=== PATIENT | male | born 1990 | race Two or more races ===

== ENCOUNTER 2019-10-24 00:22 | Inpatient (IN) | payer SELFPAY ==
[2019-10-24] VITALS (23 sets, daily range): BP systolic 109–178; BP diastolic 71–124
[~2019-10-24] VITALS: Ht 177.8 cm; Wt 122.5 kg
[2019-10-24] MEDS ORDERED: IV NORMAL SALINE 1000 ML BAG IV ONE (01:00)
--- NOTE | 2019-10-24 01:08 | NUR ---
DR. RODRIGUEZ AT BEDSIDE FOR MSE.
[2019-10-24 01:13] LABS: BASOPHILS # (AUTO) 0.1 K/uL (0.0-8.0); BASOPHILS % (AUTO) 0.6 % (0.0-2.0); EOSINOPHILS # (AUTO) 0.3 K/uL (0.0-0.7); EOSINOPHILS % (AUTO) 3.2 % (0.0-7.0); HEMATOCRIT 40.4 % (36.7-47.1); HEMOGLOBIN 13.7 g/dL (12.5-16.3); LYMPHOCYTES # (AUTO) 0.6 K/uL (20.0-40.0); MEAN CORPUSCULAR HEMOGLOBIN 27.2 uug (23.8-33.4); MEAN CORPUSCULAR HGB CONC 34 g/dL (32.5-36.3); MEAN CORPUSCULAR VOLUME 80.4 fL (73.0-96.2); MONOCYTES # (AUTO) 0.5 K/uL (2.0-10.0); MONOCYTES % (AUTO) 5.5 % (0.0-11.0); NEUTROPHILS # (AUTO) 7.7 K/uL (1.8-8.9); NEUTROPHILS % (AUTO) 83.7 % (38.5-71.5); PLATELET COUNT (AUTO) 229 K/uL (152-348); RED BLOOD CELL COUNT(AUTO) 5.02 MIL/uL (4.06-5.63); WHITE BLOOD COUNT (AUTO) 9.2 K/uL (3.6-10.2)
--- NOTE | 2019-10-24 01:21 | NUR ---
ACCU CHECK 236MG/DL. DR RODRIGUEZ NOTIFIED.
[2019-10-24 01:22] LABS: ALANINE AMINOTRANSFERASE 69 U/L (16-63); ALKALINE PHOSPHATASE 89 U/L (50-136); ASPARTATE AMINOTRANSFERASE 29 U/L (15-37); BILIRUBIN,DIRECT 0.1 mg/dL (0.0-0.2); BILIRUBIN,TOTAL 0.9 mg/dL (0.2-1.0); CARBON DIOXIDE 26 mmol/L (21-32); CHLORIDE 97 mmol/L (98-107); GLUCOSE 271 mg/dL (74-106); POTASSIUM 3.6 mmol/L (3.5-5.1); TOTAL PROTEIN, SERUM 7.6 g/dL (6.4-8.2); UREA NITROGEN, BLOOD 12 mg/dL (7-18)
[2019-10-24 01:28] LABS: ETHANOL < 3 MG/DL (0-0)
[2019-10-24] MEDS ORDERED: OSELTAMIVIR PHOSPHATE 75 MG CAPSULE ONE (01:28)
[2019-10-24] MEDS ORDERED: OSELTAMIVIR PHOSPHATE 75 MG CAPSULE PO ONE (01:30)
[2019-10-24] MEDS ORDERED: ONDANSETRON 4 MG/2 ML VIAL IV ONE (01:30)
[2019-10-24] MEDS ORDERED: ACETAMINOPHEN ES 500 MG TABLET PO ONE (01:30)
[2019-10-24] MEDS ORDERED: IV NS 1000 ML 1,000 ML IV ONE (01:30)
[2019-10-24 01:43] LABS: ABG BASE EXCESS -1.1 mmol/L; ABG HCO3 22.2 mmol/L; ABG PH 7.446 (7.350-7.450); ABG SITE RIGHT RADIAL; ABG TOTAL HEMOGLOBIN 13.6 G/dL (13.5-18.0); MetHb 0.3 % (0.0-1.5); O2Hb 88.1 % (94.0-97.0); VENT MODE ROOM AIR
[2019-10-24 01:51] LABS: THYROID STIMULATING HORMONE 0.435 mIU/mL (0.358-3.740)
[2019-10-24 03:02] LABS: *BILIRUBIN,URIN NEGATIVE (NEGATIVE); *BLOOD, URINE NEGATIVE (NEGATIVE); *CLARITY,URINE CLEAR (CLEAR); *COLOR,URINE YELLOW (YELLOW); *KETONES,URINE 1+ (NEGATIVE); *UROBILINOGEN,URINE 0.2 E.U./dl (NORMAL); LEUKOCYTE ESTERASE ,URINE NEGATIVE (NEGATIVE); NITRITE, URINE NEGATIVE (NEGATIVE); PH,URINE 7.5 (5.0-8.0); UGLUCOSE 3+ (NEGATIVE)
[2019-10-24 03:12] LABS: *AMPHETAMINE, URINE NEGATIVE (NEGATIVE); *BARBITURATE, URINE NEGATIVE (NEGATIVE); *CANNABINOID, URINE POSITIVE (NEGATIVE); *COCCAINE, URINE NEGATIVE (NEGATIVE); *OPIATE, URINE NEGATIVE (NEGATIVE); *PHENCYCLIDINE SCREEN,URINE NEGATIVE (NEGATIVE)
[2019-10-24 03:31] LABS: BACTERIA,URINE NONE SEEN /HPF (NONE SEEN); RBC,URINE 0-3 /HPF (0-3); SQUAMOUS EPITHELIAL CELL,UR FEW /HPF (NONE SEEN)
[2019-10-24] MEDS ORDERED: KETOROLAC TROMETHAMINE 30 MG INJ IVP ONE (03:45)
[2019-10-24] MEDS ORDERED: KETOROLAC TROMETHAMINE 30 MG INJ ONE (03:46)
[2019-10-24] MEDS ORDERED: MORPHINE SULFATE 4 MG/1 ML DISP.SYRIN ONE ×2 (03:48→06:13)
[2019-10-24] MEDS ORDERED: ASPIRIN 325 MG TABLET ONE (03:48)
[2019-10-24] MEDS ORDERED: ASPIRIN 325 MG TABLET PO ONE (04:00)
[2019-10-24] MEDS ORDERED: MORPHINE SULFATE 4 MG/1 ML DISP.SYRIN IV ONE ×2 (04:00→06:15)
--- NOTE | 2019-10-24 04:54 | NUR ---
Pt. admitted to [facility] , under care of JACOB KIMBALL Belongs List completed.
[2019-10-24] MEDS ORDERED: CEFTRIAXONE /D5W 50ML IVPB **ER PYXIS IV ONE (04:58)
[2019-10-24] MEDS ORDERED: DEXTROSE 50% 50 ML DISP.SYRIN IV PRN (05:00)
[2019-10-24] MEDS ORDERED: Z GUARD REMEDY PASTE 57 GM TUBE TOP PRN (05:00)
[2019-10-24] MEDS ORDERED: MORPHINE SULFATE 2 MG/1 ML DISP.SYRIN IV PRN (05:00)
[2019-10-24] MEDS ORDERED: ALBUTEROL SULFATE 2.5 MG/ 0.5 ML NEBU NEB PRN (05:00)
[2019-10-24] MEDS ORDERED: MAGNESIUM HYDROXIDE 30 ML LIQUID UDC PO PRN (05:00)
[2019-10-24] MEDS ORDERED: TEMAZEPAM 15 MG CAPSULE PO PRN (05:00)
[2019-10-24] MEDS ORDERED: CEFTRIAXONE 1 G in IV DEXTROSE 5% 50 ML IV ONE (05:00)
[2019-10-24] MEDS ORDERED: AZITHROMYCIN 250 MG TABLET PO ONE (05:00)
[2019-10-24] MEDS ORDERED: ONDANSETRON 4 MG/2 ML VIAL IV PRN (05:00)
--- NOTE | 2019-10-24 06:15 | NUR ---
PATIENT C/O CHEST PAIN AND SHORTNESS OF BREATH. RECTAL TEMP DONE 102.3, EKG AND LABS DONE. DR MICHAEL MCKEON WITH JACOB KIMBALL, AND PATIENT WILL BE TRANSFERRED TO CCU.
[2019-10-24] MEDS ORDERED: IBUPROFEN 800 MG TABLET ONE (06:30)
--- NOTE | 2019-10-24 06:35 | NUR ---
CONTRAST CONSENT SIGNED.
[2019-10-24] MEDS: IBUPROFEN 800 MG TABLET PO PRN ×2 (06:46→16:48)
--- NOTE | 2019-10-24 06:51 | NUR ---
REPORT GIVEN TO RICHY HENDRICKS
[2019-10-24] MEDS ORDERED: IOHEXOL 350 100 ML INFUS..BTL ONE (06:58)
[2019-10-24] MEDS ORDERED: IV NORMAL SALINE 250 ML IV ONE (06:58)
[2019-10-24] MEDS ORDERED: SWABABLE VALVE TRANSFER SET EA MC ONE (06:58)
--- NOTE | 2019-10-24 07:11 | NUR ---
RECEIVED PATIENT FROM ER. PATIENT AMBULATORY, AOX4. PATIENT DENIES PAIN AND DISCOMFORT. PATIENT IN ACUTE DISTRESS WITH SOB PATIENT ON 2L VIA NC. SITUATED PATIENT IN BED.
[2019-10-24] MEDS: ACETAMINOPHEN 325 MG TABLET PO PRN ×2 (07:37→15:13)
[2019-10-24] MEDS: PANTOPRAZOLE SODIUM 40 MG TABLET.DR PO SCH (07:38)
[2019-10-24] MEDS: BLOOD SUGAR DIAGNOSTIC 1 EACH STRIP VI SCH ×4 (08:03→21:44)
[2019-10-24] MEDS: IV NS 1000 ML 1,000 ML IV PRN ×2 (08:04→16:05)
[2019-10-24] MEDS: ENOXAPARIN SODIUM 40 MG/0.4 ML DISP.SYRIN SQ SCH (08:07)
[2019-10-24 08:10] LABS: ABG BASE EXCESS -2.1 mmol/L; ABG PCO2 35.7 mmHg (35.0-45.0); ABG PH 7.407 (7.350-7.450); ABG PO2 72.9 mmHg (75.0-100.0); ABG SITE RIGHT RADIAL; VENT MODE Nasal Cannula
--- NOTE | 2019-10-24 08:10 | NUR ---
HOSPITALIST DR PAUL IN THE UNIT. FULL REPORT GIVEN. PATIENT MONITORED FOR HYPERTENSION PRN MEDICATION GIVEN, BLOOD SUGAR MONITORED AND INSULIN ADMINISTERED. CONTROLLING FEVER IMPLEMENTED COOLING MEASURES AND TYLENOL. DR CHAMBERS AT BEDSIDE DISCUSSING PLAN OF CARE WITH PATIENT.
[2019-10-24] MEDS: hydrALAZINE HCL 20 MG/1 ML VIAL IV PRN ×3 (08:15→22:38)
[2019-10-24] MEDS: OSELTAMIVIR PHOSPHATE 75 MG CAPSULE PO SCH (08:16)
[2019-10-24] MEDS: INSULIN REGULAR, HUMAN 300 UNIT/3 ML VIAL SQ PRN ×4 (08:17→21:47)
[2019-10-24] MEDS: GUAIFENESIN/CODEINE 5 ML LIQUID UDC PO PRN ×2 (09:44→17:40)
[2019-10-24] MEDS: BENZONATATE 100 MG CAPSULE PO SCH ×3 (09:51→22:31)
[2019-10-24] MEDS ORDERED: LORAZEPAM 2 MG/1 ML VIAL IV PRN (10:30)
--- NOTE | 2019-10-24 10:39 | NUR ---
PULMONARY SERVICES IN THE UNIT, DR LOPEZ. FULL REPORT GIVEN TO DR. LOPEZ SEE ORDER HISTORY. DR LOPEZ AT BEDSIDE DISCUSSING PLAN OF CARE WITH PATIENT.
[2019-10-24] MEDS: METOCLOPRAMIDE HCL 10 MG/2 ML VIAL IV PRN (12:34)
[2019-10-24] MEDS: MORPHINE SULFATE 4 MG/1 ML DISP.SYRIN IV PRN ×2 (12:34→23:39)
--- NOTE | 2019-10-24 13:00 | NUR ---
At this time muffler hand superintendent distribution Dr. Mitchell called to be notified of persistent tachycardia in the 150's. with SBP slowly trending down now in [id number] patient remains with elevated temp. 102.2 while on cooling measures and medicated as ordered. Orders to continue with current care plan received. Attending also notified.
[2019-10-24] MEDS: HYDROCODONE/APAP 5-325MG TABLET PO PRN ×2 (13:13→23:38)
[2019-10-24] MEDS ORDERED: KETOROLAC TROMETHAMINE 15 MG INJ IVP ONE (17:00)
[2019-10-24] MEDS: COLCHICINE 0.6 MG TABLET PO SCH (17:36)
[2019-10-24] MEDS: IBUPROFEN 800 MG TABLET PO SCH (17:38)
--- NOTE | 2019-10-24 19:15 | NUR ---
received patient , awake oiriented , temp was 99 .0 rectally , on 3 l nc , hl , denies nausea and vomiting , and pain uses urinal
--- NOTE | 2019-10-24 19:45 | NUR ---
bijan montoya , epi for id was here to see reji tatum
[2019-10-24] MEDS ORDERED: METOPROLOL TARTRATE 25 MG TABLET PO SCH (21:00)
--- NOTE | 2019-10-24 22:00 | NUR ---
report given to marisa harvey , patient mental status , history , medicatins given , skin status
[2019-10-24] MEDS ORDERED: BENZONATATE 100 MG CAPSULE ONE (22:05)
--- NOTE | 2019-10-24 23:52 | NUR ---
patient is educated about sins and symptoms of sob , positioning, an oxygen on 3 l via nc Addendum: 10/24/19 at 2352 by JANICE VELA RN Amended: Links added.
[2019-10-25] VITALS (25 sets, daily range): BP systolic 93–190; BP diastolic 52–144
[2019-10-25] MEDS: IBUPROFEN 800 MG TABLET PO SCH ×3 (00:56→16:40)
[2019-10-25] MEDS: GUAIFENESIN/CODEINE 5 ML LIQUID UDC PO PRN ×2 (00:57→06:36)
[2019-10-25] MEDS: hydrALAZINE HCL 20 MG/1 ML VIAL IV PRN (02:15)
--- NOTE | 2019-10-25 03:10 | NUR ---
MESSAGE LEFT WITH DR. CHRISTENSEN, ,BUT NO RETURN CALL, CALLED ABOUT PT B/P 190, INFORMED ME TO LET MEDICINE GIVEN TO TAKE EFFECT.
[2019-10-25] MEDS: HYDROCODONE/APAP 5-325MG TABLET PO PRN ×2 (03:55→15:17)
[2019-10-25] MEDS: MORPHINE SULFATE 4 MG/1 ML DISP.SYRIN IV PRN ×2 (03:55→22:13)
[2019-10-25 05:39] LABS: BASOPHILS % (AUTO) 0.2 % (0.0-2.0); EOSINOPHILS % (AUTO) 0.2 % (0.0-7.0); HEMATOCRIT 39.2 % (36.7-47.1); HEMOGLOBIN 13.1 g/dL (12.5-16.3); LYMPHOCYTES # (AUTO) 0.5 K/uL (20.0-40.0); LYMPHOCYTES % (AUTO) 7.6 % (20.5-51.5); MEAN CORPUSCULAR HEMOGLOBIN 27.5 uug (23.8-33.4); MEAN CORPUSCULAR HGB CONC 34 g/dL (32.5-36.3); MONOCYTES # (AUTO) 0.4 K/uL (2.0-10.0); MONOCYTES % (AUTO) 5.9 % (0.0-11.0); NEUTROPHILS # (AUTO) 5.6 K/uL (1.8-8.9); NEUTROPHILS % (AUTO) 86.1 % (38.5-71.5); PLATELET COUNT (AUTO) 184 K/uL (152-348); RED BLOOD CELL COUNT(AUTO) 4.78 MIL/uL (4.06-5.63); WHITE BLOOD COUNT (AUTO) 6.5 K/uL (3.6-10.2)
[2019-10-25] MEDS: PANTOPRAZOLE SODIUM 40 MG TABLET.DR PO SCH (06:12)
[2019-10-25] MEDS: BENZONATATE 100 MG CAPSULE PO SCH ×3 (06:12→21:10)
[2019-10-25] MEDS: BLOOD SUGAR DIAGNOSTIC 1 EACH STRIP VI SCH ×4 (06:48→21:31)
[2019-10-25] MEDS: INSULIN REGULAR, HUMAN 300 UNIT/3 ML VIAL SQ PRN ×4 (06:52→21:33)
--- NOTE | 2019-10-25 07:50 | NUR ---
REYES IN THE UNIT TO SEE PATIENT REPORT GIVEN. REFER TO ORDER HISTORY FOR NEW ORDERS PLACED
[2019-10-25 08:12] LABS: CREATININE 0.9 mg/dL (0.6-1.3)
[2019-10-25 08:26] LABS: BILIRUBIN,DIRECT 0.1 mg/dL (0.0-0.2); BILIRUBIN,TOTAL 0.6 mg/dL (0.2-1.0); MAGNESIUM 1.8 mg/dL (1.8-2.4); TOTAL PROTEIN, SERUM 7.2 g/dL (6.4-8.2)
[2019-10-25] MEDS: CEFTRIAXONE 1 G in IV DEXTROSE 5% 50 ML IV SCH (08:34)
[2019-10-25] MEDS: AZITHROMYCIN 250 MG TABLET PO SCH (08:34)
[2019-10-25] MEDS: ENOXAPARIN SODIUM 40 MG/0.4 ML DISP.SYRIN SQ SCH (08:35)
[2019-10-25] MEDS: OSELTAMIVIR PHOSPHATE 75 MG CAPSULE PO SCH (08:35)
[2019-10-25] MEDS: COLCHICINE 0.6 MG TABLET PO SCH ×2 (08:35→16:40)
[2019-10-25] MEDS: ACETAMINOPHEN 325 MG TABLET PO PRN (09:10)
--- NOTE | 2019-10-25 10:56 | NUR ---
PULMONARY SERVICES DR. LOPEZ IN THE UNIT. FULL REPORT GIVEN, SEE ORDER HISTORY. DR. LOPEZ AT BEDSIDE DISCUSSING PLAN OF CARE WITH PATIENT.
--- NOTE | 2019-10-25 15:00 | NUR ---
CARDIOLOGY SERVICES DR CHRISTENSEN IN THE UNIT. FULL REPORT GIVEN, NO NEW ORDERS RECEIVED. DR CHRISTENSEN AT [facility] DISCUSSING PLAN F CARE WITH PATIENT.
[2019-10-25] MEDS: METOCLOPRAMIDE HCL 10 MG/2 ML VIAL IV PRN ×2 (16:39→22:18)
--- NOTE | 2019-10-25 20:00 | NUR ---
kalia thakkar , id was here to see patient given an update on patient's condition
--- NOTE | 2019-10-25 21:00 | NUR ---
bijan microsoft dynamics ax developer id , was called to clarify order regarding diflucan interaction with zithromax , gave orders , it's mason to give diflucan
--- NOTE | 2019-10-25 22:03 | NUR ---
no sob noted , oxygen via nc was downgrade to 2l from 4 l , able to aambulate without sob in exertion with activities Addendum: 10/25/19 at 2203 by JANICE VELA RN Amended: Links added. Addendum: 10/25/19 at 2208 by JANICE VELA RN Amended: Links added. Addendum: 10/25/19 at 2222 by JANICE VELA RN Amended: Links added. Addendum: 10/25/19 at 2226 by JANICE VELA RN Amended: Links added. Addendum: 10/25/19 at 2228 by JANICE VELA RN Amended: Links added.
--- NOTE | 2019-10-25 22:08 | NUR ---
educated about signs and symptoms of flu ,diabetes ,hypotension , verbalize understanding Addendum: 10/25/19 at 2208 by JANICE VELA RN Amended: Vanda added. Addendum: 10/25/19 at 2 by JANICE VELA RN Amended: Vanda added. Addendum: 10/25/19 at 2226 by JANICE VELA RN Amended: Links added. Addendum: 10/25/19 at 2228 by JANICE VELA RN Amended: Links added.
--- NOTE | 2019-10-25 22:18 | NUR ---
complaine of feleling nauseated , medicationofferer and accepted
--- NOTE | 2019-10-25 22:22 | NUR ---
blood sugar is being monitored and and output Addendum: 10/25/19 at 2222 by JANICE VELA RN Amended: Vanda added. Addendum: 10/25/19 at 2226 by JANICE VELA RN Amended: Vanda drummond. Addendum: 10/25/19 at 2228 by JANICE VELA RN Amended: Links added.
--- NOTE | 2019-10-25 22:26 | NUR ---
lab work is being monitored and intake and output Addendum: 10/25/19 at 2226 by JANICE VELA RN Amended: Vanda added. Addendum: 10/25/19 at 2228 by JANICE VELA RN Amended: Vanda drummond.
--- NOTE | 2019-10-25 22:28 | NUR ---
patient has prn hydralazine iv for htn and pain mediation when needed Addendum: 10/25/19 at 2228 by JANICE VELA RN Amended: Links added.
--- NOTE | 2019-10-25 23:00 | NUR ---
feeling of nausea and pain relieved
[2019-10-26] VITALS (36 sets, daily range): BP systolic 64–146; BP diastolic 22–99
[2019-10-26] MEDS: IBUPROFEN 800 MG TABLET PO SCH ×3 (01:00→17:34)
--- NOTE | 2019-10-26 01:00 | NUR ---
sleeping soundly , arousable , denies pain , nausea or vomiting
--- NOTE | 2019-10-26 04:00 | NUR ---
complained of sob , rt notified and after receiving breathing breathing treatment les than an hour ago , abg was done , cxr oredered and done , pain medication given vs taken and tamperature is 98.8, awake and oriented and able to follow command , oxygen at 2 l nc , saturating 100 %
[2019-10-26] MEDS: MORPHINE SULFATE 4 MG/1 ML DISP.SYRIN IV PRN (04:12)
--- NOTE | 2019-10-26 04:15 | NUR ---
heart rate went up to 180 , ekg was ordered and done , still awake oriented
--- NOTE | 2019-10-26 04:20 | NUR ---
dr raphael was called and notified of patient's status ordered 5 mg lopressor iv x 1
[2019-10-26] MEDS ORDERED: METOPROLOL TARTRATE 5 MG/5 ML VIAL IVP PRN (04:30)
[2019-10-26 04:57] LABS: ABG BASE EXCESS -2.3 mmol/L; ABG HCO3 20.6 mmol/L; ABG PH 7.454 (7.350-7.450); ABG PO2 98.8 mmHg (75.0-100.0); ABG SITE RIGHT RADIAL; ABG TOTAL HEMOGLOBIN 12.8 G/dL (13.5-18.0); COHb 1.1 % (0.5-1.5); MetHb 0.4 % (0.0-1.5); O2Hb 96.6 % (94.0-97.0); VENT MODE Nasal Cannula
--- NOTE | 2019-10-26 05:04 | NUR ---
heart rate is still sustaining at 170's , malena guerrero , called and notified , of patient's staus . waiting for calll back
[2019-10-26 05:21] LABS: BASOPHILS % (AUTO) 0.4 % (0.0-2.0); EOSINOPHILS # (AUTO) 0.2 K/uL (0.0-0.7); EOSINOPHILS % (AUTO) 3.1 % (0.0-7.0); HEMATOCRIT 37.6 % (36.7-47.1); HEMOGLOBIN 12.7 g/dL (12.5-16.3); LYMPHOCYTES # (AUTO) 1.4 K/uL (20.0-40.0); LYMPHOCYTES % (AUTO) 22.4 % (20.5-51.5); MEAN CORPUSCULAR HEMOGLOBIN 27.4 uug (23.8-33.4); MEAN CORPUSCULAR HGB CONC 34 g/dL (32.5-36.3); MEAN CORPUSCULAR VOLUME 81.6 fL (73.0-96.2); MONOCYTES # (AUTO) 0.5 K/uL (2.0-10.0); MONOCYTES % (AUTO) 7.8 % (0.0-11.0); NEUTROPHILS # (AUTO) 4.1 K/uL (1.8-8.9); NEUTROPHILS % (AUTO) 66.3 % (38.5-71.5); PLATELET COUNT (AUTO) 169 K/uL (152-348); RED BLOOD CELL COUNT(AUTO) 4.61 MIL/uL (4.06-5.63); WHITE BLOOD COUNT (AUTO) 6.2 K/uL (3.6-10.2)
--- NOTE | 2019-10-26 05:30 | NUR ---
malena guerrero , called back and notified of patient' s current status and heart rate went down to 115 and patient is more comfortable and awake oriented , no sob , no orderd received
[2019-10-26] MEDS: PANTOPRAZOLE SODIUM 40 MG TABLET.DR PO SCH (06:43)
[2019-10-26] MEDS: BENZONATATE 100 MG CAPSULE PO SCH ×3 (06:43→22:57)
[2019-10-26] MEDS: BLOOD SUGAR DIAGNOSTIC 1 EACH STRIP VI SCH ×4 (06:52→20:30)
[2019-10-26] MEDS: INSULIN REGULAR, HUMAN 300 UNIT/3 ML VIAL SQ PRN ×4 (06:53→20:33)
--- NOTE | 2019-10-26 07:21 | NUR ---
Contacted Dr. Gibson in regards to increased HR of 191, no orders at this time, Dr. Gibson will discuss with Dr. Mitchell.
[2019-10-26] MEDS ORDERED: ADENOSINE 6 MG/2 ML SYR IV ONE ×5 (07:45→08:00)
--- NOTE | 2019-10-26 07:45 | NUR ---
Dr Mitchell, contacted this film writer and started to give orders for adenosine push 6mg then 12mg, and then 12mg. Dr Trevino was called from the ER to be at the bedside. Dr. Barraza is on her way.
[2019-10-26] MEDS ORDERED: HYDROMORPHONE 1 MG/1 ML DISP.SYRIN IVP ONE (08:15)
[2019-10-26] MEDS ORDERED: IV NS 1000 ML 1,000 ML IV ONE ×2 (08:15→11:45)
[2019-10-26 08:28] LABS: CREATININE 0.9 mg/dL (0.6-1.3); MAGNESIUM 1.8 mg/dL (1.8-2.4); PHOSPHOROUS 2.8 mg/dL (2.5-4.9); POTASSIUM 3.5 mmol/L (3.5-5.1)
[2019-10-26] MEDS ORDERED: ETOMIDATE 20 MG/10 ML VIAL IV ONE ×3 (08:30→10:00)
[2019-10-26] MEDS ORDERED: AMIODARONE HCL IV 150 MG in IV DEXTROSE 5% 100 ML IV STA (08:32)
[2019-10-26] MEDS ORDERED: AMIODARONE HCL IV 900 MG in IV DEXTROSE 5% 482 ML IV PRN (08:45)
--- NOTE | 2019-10-26 08:48 | NUR ---
Adenosine 6mg given at 0748 followed by 12mg at 0823am. Dr. balderas at bedside decided to cardiovert at 0824am at 100joules following an administration of 10mg etomidate and 0.5mg dilaudid iv push. Patient converted for a short period of time before he went back into SVT. Amioderone 150 IV push was given and a drip was prepared. A second cardoversion attempted by Dr. Balderas at 0848 after 5mg of Etomidate given.
[2019-10-26] MEDS ORDERED: ONDANSETRON 4 MG/2 ML VIAL IV STA (08:51)
[2019-10-26] MEDS ORDERED: FLUCONAZOLE 100 MG TABLET PO SCH (09:00)
--- NOTE | 2019-10-26 09:18 | NUR ---
Wasted Morphine that was pulled for pain as patients BP dropped. Accidentally typed "0" for amount wasted. Wasted amount was 4mg.
--- NOTE | 2019-10-26 09:32 | NUR ---
Patient was in SVT again 18mg Adenosine given iv push. Esmolol 60mg was given and an esmolol drip was given starting at 25 mcg/kg. Patient was in sinus tachycardia at 0932am
[2019-10-26] MEDS ORDERED: ESMOLOL 2.5 GM/NS 250 ML DRIP 250 ML IV ONE (09:38)
[2019-10-26] MEDS ORDERED: MIDAZOLAM HCL 2 MG/2 ML VIAL IV ONE (09:45)
[2019-10-26] MEDS ORDERED: ESMOLOL 2.5 GM/NS 250 ML DRIP 250 ML IV PRN ×3 (09:45→10:00)
[2019-10-26] MEDS ORDERED: ESMOLOL HCL 100 MG/10 ML VIAL IV ONE (09:45)
[2019-10-26] MEDS ORDERED: POTASSIUM CHLORIDE 20 MEQ POWDER PACKET PO ONE (10:15)
[2019-10-26] MEDS: AZITHROMYCIN 250 MG TABLET PO SCH (10:32)
[2019-10-26] MEDS: OSELTAMIVIR PHOSPHATE 75 MG CAPSULE PO SCH (10:35)
[2019-10-26] MEDS: COLCHICINE 0.6 MG TABLET PO SCH ×2 (10:35→17:34)
[2019-10-26] MEDS: ENOXAPARIN SODIUM 40 MG/0.4 ML DISP.SYRIN SQ SCH (10:51)
--- NOTE | 2019-10-26 11:00 | NUR ---
patient started complaining of pain in left groin. Patient feels weak and painful in left arm and leg. Left pedal pulse weak, but audible by doppler. Dr rodriguez came to bedside to evaluate patient.
--- NOTE | 2019-10-26 11:10 | NUR ---
BP dropping, contacted Dr. Mitchell and was advised to hold esmolol and monitor. PICC line ordered at this time.
[2019-10-26] MEDS: IV NS 1000 ML 1,000 ML IV PRN ×2 (12:10→23:24)
[2019-10-26] MEDS: CEFTRIAXONE 1 G in IV DEXTROSE 5% 50 ML IV SCH (13:01)
--- NOTE | 2019-10-26 15:00 | NUR ---
Picc line placed by Picc line nurse. Patient tolerated well.
[2019-10-26] MEDS: MAGNESIUM SULFATE/D5W 100 ML IV SCH ×2 (16:05→17:33)
--- NOTE | 2019-10-26 16:30 | NUR ---
Patient up at bedside and had a bowel movement. Tolerated movement independently, refused to use the commode.
--- NOTE | 2019-10-26 19:20 | NUR ---
Report given to nightman nurse, patient in bed awake alert/oriented x4 no distress noted at this time. amioderone running at 0.5, with NS running at 100ml/hr, sinus rhythm on the monitor. Awaiting results from radiology to see if picc line can be used as the first xray was not able to visualize the tip of the catheter.
--- NOTE | 2019-10-26 20:00 | NUR ---
RECEIVED PT AWAKE, ALERT & ORIENTED X4. DENIES PAIN THIS TIME. ON O2 @ 2lnc w/ o2 sat of 97%. ON AMIODARONE DRIP @ 0.5MG/HR ON LAC. AFEBRILE BP STABLE . C-SCOPE SR.
[2019-10-26] MEDS ORDERED: DIPHENOXYLATE HCL/ATROP SULF TABLET PO PRN (23:15)
--- NOTE | 2019-10-26 23:15 | NUR ---
PT HAD X4 LOOSE STOOL, CALLED DR CHAMBERS W/ GREG.
[2019-10-27] VITALS (22 sets, daily range): BP systolic 112–169; BP diastolic 56–112
--- NOTE | 2019-10-27 01:15 | NUR ---
PT HAD EMESIS OF APPROX 200CC, CALLED JACOB KIMBALL W/ ORDER. ZOFRAN 4MG GIVEN IVP ORDERED.
[2019-10-27] MEDS: IBUPROFEN 800 MG TABLET PO SCH ×3 (01:32→18:02)
[2019-10-27 04:42] LABS: BASOPHILS % (AUTO) 0.3 % (0.0-2.0); EOSINOPHILS # (AUTO) 0.2 K/uL (0.0-0.7); EOSINOPHILS % (AUTO) 2.6 % (0.0-7.0); HEMATOCRIT 34.4 % (36.7-47.1); HEMOGLOBIN 11.6 g/dL (12.5-16.3); LYMPHOCYTES # (AUTO) 1.6 K/uL (20.0-40.0); LYMPHOCYTES % (AUTO) 28.8 % (20.5-51.5); MEAN CORPUSCULAR HEMOGLOBIN 27.3 uug (23.8-33.4); MEAN CORPUSCULAR HGB CONC 34 g/dL (32.5-36.3); MEAN CORPUSCULAR VOLUME 81.2 fL (73.0-96.2); MONOCYTES # (AUTO) 0.3 K/uL (2.0-10.0); MONOCYTES % (AUTO) 5.8 % (0.0-11.0); NEUTROPHILS # (AUTO) 3.6 K/uL (1.8-8.9); NEUTROPHILS % (AUTO) 62.5 % (38.5-71.5); PLATELET COUNT (AUTO) 182 K/uL (152-348); RED BLOOD CELL COUNT(AUTO) 4.24 MIL/uL (4.06-5.63); WHITE BLOOD COUNT (AUTO) 5.7 K/uL (3.6-10.2)
[2019-10-27 04:50] LABS: CARBON DIOXIDE 24 mmol/L (21-32); CHLORIDE 103 mmol/L (98-107); CREATININE 0.7 mg/dL (0.6-1.3); GLUCOSE 193 mg/dL (74-106); MAGNESIUM 1.9 mg/dL (1.8-2.4); POTASSIUM 3.5 mmol/L (3.5-5.1); UREA NITROGEN, BLOOD 14 mg/dL (7-18)
--- NOTE | 2019-10-27 05:20 | NUR ---
HYDRALAZINE 10MG GIVEN IVP FOR BP-162/100.
[2019-10-27] MEDS: hydrALAZINE HCL 20 MG/1 ML VIAL IV PRN (05:22)
[2019-10-27] MEDS: BENZONATATE 100 MG CAPSULE PO SCH ×3 (05:22→21:02)
[2019-10-27] MEDS: PANTOPRAZOLE SODIUM 40 MG TABLET.DR PO SCH (06:50)
--- NOTE | 2019-10-27 08:01 | NUR ---
Contacted Dr. Gibson about continuation of the amioderon drip. He converted this medication to PO amioderon 400mg TID.
[2019-10-27] MEDS: BLOOD SUGAR DIAGNOSTIC 1 EACH STRIP VI SCH ×4 (08:10→21:00)
[2019-10-27] MEDS: ONDANSETRON 4 MG/2 ML VIAL IV PRN ×2 (08:11→16:56)
[2019-10-27] MEDS: COLCHICINE 0.6 MG TABLET PO SCH ×2 (08:12→18:03)
[2019-10-27] MEDS: OSELTAMIVIR PHOSPHATE 75 MG CAPSULE PO SCH (08:13)
[2019-10-27] MEDS: CEFTRIAXONE 1 G in IV DEXTROSE 5% 50 ML IV SCH (08:13)
[2019-10-27] MEDS: INSULIN REGULAR, HUMAN 300 UNIT/3 ML VIAL SQ PRN ×3 (08:16→18:04)
[2019-10-27] MEDS: ENOXAPARIN SODIUM 40 MG/0.4 ML DISP.SYRIN SQ SCH (08:19)
[2019-10-27] MEDS ORDERED: AMIODARONE HCL 200 MG TABLET PO SCH ×2 (09:00→17:00)
[2019-10-27] MEDS ORDERED: SIMETHICONE 80 MG TAB.CHEW PO PRN (10:00)
[2019-10-27] MEDS: IV NS 1000 ML 1,000 ML IV PRN ×2 (10:12→10:41)
[2019-10-27] MEDS ORDERED: ALPRAZOLAM 0.25 MG TABLET PO PRN (10:15)
--- NOTE | 2019-10-27 10:15 | NUR ---
Patient seen by Dr. Barraza, patient crying and mentioned that he was very anxious and depressed about being here and sick and that he has no one here but his girlfriend. Dr. Barraza notified that he was anxious and that ativan had not been recommended byDr. Mitchell. Orders received for 0.25 Xanax as long as it was ok with Dr. Mitchell, Medication was okayed by Dr. Mitchell.
[2019-10-27] MEDS: METOPROLOL SUCCINATE XL 50 MG TAB.SR.24H PO SCH ×2 (10:41→20:57)
[2019-10-27] MEDS ORDERED: Z GUARD REMEDY PASTE 57 GM TUBE TOP PRN (12:15)
[2019-10-27] MEDS: ACETAMINOPHEN 325 MG TABLET PO PRN (15:07)
--- NOTE | 2019-10-27 16:00 | NUR ---
Patient was having a severe anxiety attack and crying episodes that he was uncomfortable being here. Patient was reassured that he should stay and had been given xanax for anxiety for an earlier episode of anxiety and crying. Patient indicated that his baby was sick and is just comfortable here. Patient encouraged to relax and try to relax and reduce stimuli in the room by turning off the TV and turning down the light.
--- NOTE | 2019-10-27 19:15 | NUR ---
Report given to cook night nurse. Patient in bed at this time relaxing. BP improving, and patient laying in bed.
--- NOTE | 2019-10-27 20:00 | NUR ---
RECEIVED PT AWAKE, ALERT & ORIENTED X4. PT ON RM AIR W/ O2 SAT OF 95%. PICC LINE ON ASAD INTACT & PATENT. PT DENIES DISCOMFORTS. C-SCOPE ST NO ECTOPY.
--- NOTE | 2019-10-27 20:30 | NUR ---
PT. WANTS TO GO HOME AGAINST MEDICAL ADVICE, CALLED DR CHAMBERS. DR CHAMBERS TALKED TO PT BY PHONE.
--- NOTE | 2019-10-27 20:53 | NUR ---
PT. SIGNED AGAINST MEDICAL ADVICE FORM. REMOVED PICC LINE & DRSG APPLIED. REFUSED ACCUCHECK TO BE DONE. TOOK ALL MEDS DUE FOR 2100.
--- NOTE | 2019-10-27 21:15 | NUR ---
PT. LEFT THE FACILITY AMBULATORY ACCOMPANIED TO THE LOBBY TO BE PICKED UP BY HIS GIRLFRIEND.
== END 2019-10-27 21:15 | disposition left against medical advice (07) | DRG 871 ==
LOC: EDBD → ER 00:28 → UNDOADMIN 05:59 → TELE3 05:59 → CCU 05:59
PROVIDERS: ADMIT Nurse Practitioner Acute Care; ATTEND Student in an Organized Health Care Education/Training Program
PROC: 5A2204Z Restoration of Cardiac Rhythm, Single (ICD-10-PCS; principal; 2019-10-26)
PROC: 02HV33Z Insertion of Infusion Device into Superior Vena Cava, Percutaneous Approach (ICD-10-PCS; principal; 2019-10-26)
DX: A41.89 Other specified sepsis (principal); J10.01 Influenza due to other identified influenza virus with the same other identified influenza virus pneumonia; J96.01 Acute respiratory failure with hypoxia; E87.1 Hypo-osmolality and hyponatremia; B37.49 Other urogenital candidiasis; I47.1 Supraventricular tachycardia; I42.9 Cardiomyopathy, unspecified; R65.20 Severe sepsis without septic shock; Z91.120 Patient's intentional underdosing of medication regimen due to financial hardship; E11.65 Type 2 diabetes mellitus with hyperglycemia; E66.01 Morbid (severe) obesity due to excess calories; Z68.39 Body mass index [BMI] 39.0-39.9, adult; J10.1 Influenza due to other identified influenza virus with other respiratory manifestations; J10.82 Influenza due to other identified influenza virus with myocarditis; Z82.3 Family history of stroke; I11.0 Hypertensive heart disease with heart failure; I50.9 Heart failure, unspecified; Z91.19 Patient's noncompliance with other medical treatment and regimen; Z87.891 Personal history of nicotine dependence; R74.0 Nonspecific elevation of levels of transaminase and lactic acid dehydrogenase [LDH]
CPT/HCPCS: 36415; 36600; 70030-TC; 71045; 71275; 80307; 83605; 83735; 84100; 84443; 85025; 85730; 87040; 87086; 87400; 87806; 93005; 93307; 94640; A4217; A4663; A9150; G0378; G0480; J0153; J0282; J0360; J0696; J1170; J1650; J1815; J1885; J2060; J2270; J2405; J2765; J3475; J3490; J7030; J7050; J7060; Q0144; Q9967

== ENCOUNTER 2019-10-27 22:27 | Inpatient (IN) | payer SELFPAY ==
[~2019-10-27] VITALS: Ht 175.3 cm; Wt 127.5 kg
--- NOTE | 2019-10-27 22:40 | NUR ---
Patient walked into ER c/o SOB with N/V. Patient states he left AMA in the ICU here about 30mins [employer]ALLPAPER REM[employer] to visit family but got nausea and had SOB.
[2019-10-27] MEDS ORDERED: Z GUARD REMEDY PASTE 57 GM TUBE TOP PRN (23:45)
[2019-10-27] MEDS ORDERED: METOPROLOL SUCCINATE XL 50 MG TAB.SR.24H PO SCH (23:45)
[2019-10-27] MEDS ORDERED: ONDANSETRON 4 MG/2 ML VIAL IV PRN (23:45)
[2019-10-27] MEDS ORDERED: ACETAMINOPHEN 325 MG TABLET PO PRN (23:45)
[2019-10-27] MEDS ORDERED: BLOOD SUGAR DIAGNOSTIC 1 EACH STRIP VI SCH (23:45)
[2019-10-27] MEDS ORDERED: OSELTAMIVIR PHOSPHATE 75 MG CAPSULE PO SCH (23:45)
[2019-10-27] MEDS ORDERED: HYDROCODONE/APAP 5-325MG TABLET PO PRN (23:45)
[2019-10-27] MEDS ORDERED: IV NS 1000 ML 1,000 ML IV PRN (23:45)
[2019-10-27] MEDS ORDERED: DEXTROSE 50% 50 ML DISP.SYRIN IV PRN (23:45)
[2019-10-27] MEDS ORDERED: MAGNESIUM HYDROXIDE 30 ML LIQUID UDC PO PRN (23:45)
[2019-10-27] MEDS ORDERED: INSULIN REGULAR, HUMAN 300 UNITS/3 ML VIAL SQ PRN (23:45)
[2019-10-28] MEDS ORDERED: diphenhydrAMINE 50 MG/1 ML VIAL IV ONE ×2 (00:15→00:30)
[2019-10-28] MEDS ORDERED: METOCLOPRAMIDE HCL 10 MG/2 ML VIAL IV ONE (00:15)
[2019-10-28] MEDS ORDERED: diphenhydrAMINE 50 MG/1 ML VIAL ONE ×2 (00:17→00:28)
[2019-10-28] MEDS ORDERED: METOCLOPRAMIDE HCL 10 MG/2 ML VIAL ONE (00:17)
--- NOTE | 2019-10-28 00:25 | NUR ---
Patient anxious after recieving reglan ivp Dr Kumar baker.
--- NOTE | 2019-10-28 00:55 | NUR ---
Patient ambulated with stable gait to the bathroom
--- NOTE | 2019-10-28 01:30 | NUR ---
Patient sleeping with no distress noted.
--- NOTE | 2019-10-28 02:30 | NUR ---
Patient BP BP at 182/124, HR 103, R 18, O2 sat at 98% on 2Liters N/C. Dr Heath aware of BP. Patient denies CP.
[2019-10-28] MEDS ORDERED: hydrALAZINE HCL 20 MG/1 ML VIAL ONE (02:42)
[2019-10-28] MEDS ORDERED: hydrALAZINE HCL 20 MG/1 ML VIAL IV ONE (02:45)
--- NOTE | 2019-10-28 04:00 | NUR ---
Re-admitted 26y/o Male under the care of Marylin CORTEZ. Dx: Flu. Patient is A&Ox4. On O2 at 2lpm via NC. Patient noted w/ elevated BP from ER. Recent BP is 167/108 HR-114. Patient asymptomatic. Placed patient on Tele monitor. Oriented patient to his room and with the use of call light. Admission protocol initiated. Body assessment done. Safety measures observed. Call light in reach
--- NOTE | 2019-10-28 04:00 | NUR ---
Transfered to Tele 3rd floor.
[2019-10-28] MEDS ORDERED: METOPROLOL SUCCINATE XL 50 MG TAB.SR.24H PO ONE (04:35)
[2019-10-28 05:46] VITALS: BP 167/120
[2019-10-28 06:34] LABS: BASOPHILS % (AUTO) 0.4 % (0.0-2.0); CREATININE 0.8 mg/dL (0.6-1.3); EOSINOPHILS # (AUTO) 0.1 K/uL (0.0-0.7); HEMATOCRIT 35.9 % (36.7-47.1); HEMOGLOBIN 12.3 g/dL (12.5-16.3); LYMPHOCYTES # (AUTO) 1.6 K/uL (20.0-40.0); LYMPHOCYTES % (AUTO) 24.7 % (20.5-51.5); MAGNESIUM 1.6 mg/dL (1.8-2.4); MEAN CORPUSCULAR HEMOGLOBIN 27.4 uug (23.8-33.4); MEAN CORPUSCULAR HGB CONC 34 g/dL (32.5-36.3); MEAN CORPUSCULAR VOLUME 80.2 fL (73.0-96.2); MONOCYTES # (AUTO) 0.6 K/uL (2.0-10.0); MONOCYTES % (AUTO) 8.4 % (0.0-11.0); NEUTROPHILS # (AUTO) 4.3 K/uL (1.8-8.9); NEUTROPHILS % (AUTO) 64.5 % (38.5-71.5); PHOSPHOROUS 2.9 mg/dL (2.5-4.9); PLATELET COUNT (AUTO) 195 K/uL (152-348); POTASSIUM 3.3 mmol/L (3.5-5.1); RED BLOOD CELL COUNT(AUTO) 4.47 MIL/uL (4.06-5.63); WHITE BLOOD COUNT (AUTO) 6.6 K/uL (3.6-10.2)
[2019-10-28] MEDS: BLOOD SUGAR DIAGNOSTIC 1 EACH STRIP VI SCH ×4 (06:37→20:59)
[2019-10-28 06:41] VITALS: BP 157/113
--- NOTE | 2019-10-28 06:49 | NUR ---
Metoprolol succ 50mg PO given as ordered. Latest BP 157/113, HR-113. As per patient this is his baseline VS. Latest BS is 166. Will endorse accordingly
[2019-10-28] MEDS ORDERED: PANTOPRAZOLE SODIUM 40 MG TABLET.DR PO SCH (07:00)
[2019-10-28] MEDS: INSULIN REGULAR, HUMAN 300 UNIT/3 ML VIAL SQ PRN ×3 (08:22→16:40)
[2019-10-28] MEDS: COLCHICINE 0.6 MG TABLET PO SCH ×2 (08:24→16:38)
--- NOTE | 2019-10-28 08:30 | NUR ---
RECEIVED IN BED AWAKE ALERT AND ORIENTED DENIES PAIN OR DISCOMFORTS AT THIS TIME HAS O2 WITH NO SOB HE IS ON DROPLET ISOLATION AND PRECAUTION WITH MEDICATIONS ORDERED CALL LIGHTS AND PERSONAL BELONGINGS ARE WITHIN EASY REACH AT THIS TIME WILL CONTINUE TO OBSERVE.
[2019-10-28] MEDS ORDERED: ENOXAPARIN SODIUM 40 MG/0.4 ML DISP.SYRIN SQ ONE (09:00)
[2019-10-28] MEDS ORDERED: IBUPROFEN 800 MG TABLET PO ONE (09:00)
[2019-10-28] MEDS ORDERED: AMIODARONE HCL 200 MG TABLET PO ONE (09:00)
[2019-10-28] MEDS ORDERED: METOPROLOL SUCCINATE XL 50 MG TAB.SR.24H PO SCH ×2 (09:00→21:00)
[2019-10-28] MEDS ORDERED: POTASSIUM CHLORIDE 20 MEQ POWDER PACKET PO ONE (10:00)
[2019-10-28] MEDS ORDERED: MAGNESIUM SULFATE/D5W 100 ML IV SCH (10:15)
[2019-10-28] MEDS ORDERED: POTASSIUM CHLORIDE 20 MEQ TAB.PRT.SR PO ONE (10:15)
[2019-10-28] MEDS: LOSARTAN POTASSIUM 25 MG TABLET PO SCH (10:23)
[2019-10-28] MEDS: MAGNESIUM SULFATE/D5W 100 ML IV SCH ×2 (10:23→11:35)
--- NOTE | 2019-10-28 10:30 | NUR ---
MAG LEVEL IS 1.6 AND POTASSIUM LEVEL IS 3.3 MD AWARE WITH NEW ORDERS AND NOTED
[2019-10-28] MEDS: IBUPROFEN 400 MG TABLET PO SCH ×2 (13:24→21:10)
[2019-10-28 13:56] VITALS: BP 149/108
[2019-10-28] MEDS ORDERED: IBUPROFEN 800 MG TABLET PO SCH (14:00)
--- NOTE | 2019-10-28 16:27 | NUR ---
BLOOD PRESSURE AT THIS TIME IS 167/116 HR IS 107 CALLED AND LEFT A MESSAGE TO DR CHAMBERS PATIENT DENIES ANY SYMPTOMS AT THIS TIME.
[2019-10-28] MEDS: PANTOPRAZOLE SODIUM 40 MG TABLET.DR PO SCH (16:37)
[2019-10-28] MEDS: hydrALAZINE HCL 25 MG TABLET PO PRN (16:38)
[2019-10-28 16:47] VITALS: BP 167/116
[2019-10-28] MEDS: OSELTAMIVIR PHOSPHATE 75 MG CAPSULE PO SCH (17:11)
[2019-10-28] MEDS ORDERED: IBUPROFEN 800 MG TABLET PO PRN (18:00)
--- NOTE | 2019-10-28 18:00 | NUR ---
BLOOD PRESSURE IS TRENDING DOWN SLOWLY WILL CONTINUE TO OBSERVE.
[2019-10-28 20:06] VITALS: BP 168/119
[2019-10-28] MEDS: METOPROLOL SUCCINATE XL 50 MG TAB.SR.24H PO SCH (20:51)
[2019-10-28] MEDS: AMIODARONE HCL 200 MG TABLET PO SCH (20:51)
[2019-10-29 04:21] VITALS: BP 152/106
[2019-10-29] MEDS: OSELTAMIVIR PHOSPHATE 75 MG CAPSULE PO SCH ×2 (06:14→17:47)
[2019-10-29] MEDS: IBUPROFEN 400 MG TABLET PO SCH ×3 (06:14→21:33)
[2019-10-29] MEDS: PANTOPRAZOLE SODIUM 40 MG TABLET.DR PO SCH ×2 (06:15→16:33)
[2019-10-29] MEDS: BLOOD SUGAR DIAGNOSTIC 1 EACH STRIP VI SCH ×4 (06:16→21:40)
--- NOTE | 2019-10-29 07:20 | NUR ---
RECEIVED PATIENT IN BED WITH EYES CLOSED LOOK COMFORTABLE WITH NO RESPIRATORY DISTRESS AT THIS TIME REMAIN ON TELE AND HE IS ST DROPLET ISOLATION AND PRECAUTION REMAINS IN PROGRESS ORDERED CALL LIGHTS AND PERSONAL BELONGINGS PLACED WITHIN EASY REACH NOT IN DISTRESS WILL CONTINUE TO OBSERVE AND PROVIDE SAFE AND THERAPEUTIC ENVIRONMENT AT ALL TIMES.
[2019-10-29] MEDS: INSULIN REGULAR, HUMAN 300 UNIT/3 ML VIAL SQ PRN ×4 (08:06→21:47)
[2019-10-29] MEDS: METOPROLOL SUCCINATE XL 50 MG TAB.SR.24H PO SCH ×2 (08:10→21:33)
[2019-10-29] MEDS: COLCHICINE 0.6 MG TABLET PO SCH ×2 (08:10→16:46)
[2019-10-29] MEDS: AMIODARONE HCL 200 MG TABLET PO SCH (08:10)
[2019-10-29] MEDS: LOSARTAN POTASSIUM 25 MG TABLET PO SCH (08:11)
[2019-10-29] MEDS ORDERED: METOPROLOL SUCCINATE XL 50 MG TAB.SR.24H PO ONE (09:00)
[2019-10-29] MEDS ORDERED: LOSARTAN POTASSIUM 25 MG TABLET PO ONE (09:00)
[2019-10-29] MEDS: ENOXAPARIN SODIUM 40 MG/0.4 ML DISP.SYRIN SQ SCH (09:13)
--- NOTE | 2019-10-29 09:17 | NUR ---
NEW ORDERS FOR EXTRA BLOOD PRESSURE MEDICATIONS RECEIVED FROM DR PATEL AND GIVEN ORDERED B/P AT THIS TIME IS 176/128 HR IS 107
[2019-10-29 09:31] LABS: BASOPHILS # (AUTO) 0.1 K/uL (0.0-8.0); BASOPHILS % (AUTO) 1.3 % (0.0-2.0); EOSINOPHILS # (AUTO) 0.3 K/uL (0.0-0.7); EOSINOPHILS % (AUTO) 4.2 % (0.0-7.0); HEMATOCRIT 39.8 % (36.7-47.1); HEMOGLOBIN 13.3 g/dL (12.5-16.3); LYMPHOCYTES # (AUTO) 3.2 K/uL (20.0-40.0); LYMPHOCYTES % (AUTO) 44.4 % (20.5-51.5); MEAN CORPUSCULAR HEMOGLOBIN 26.8 uug (23.8-33.4); MEAN CORPUSCULAR HGB CONC 33 g/dL (32.5-36.3); MEAN CORPUSCULAR VOLUME 80.4 fL (73.0-96.2); MONOCYTES # (AUTO) 0.7 K/uL (2.0-10.0); MONOCYTES % (AUTO) 9.7 % (0.0-11.0); NEUTROPHILS # (AUTO) 2.9 K/uL (1.8-8.9); NEUTROPHILS % (AUTO) 40.4 % (38.5-71.5); PLATELET COUNT (AUTO) 221 K/uL (152-348); RED BLOOD CELL COUNT(AUTO) 4.95 MIL/uL (4.06-5.63); WHITE BLOOD COUNT (AUTO) 7.2 K/uL (3.6-10.2)
--- NOTE | 2019-10-29 11:33 | NUR ---
DR LOPEZ HERE SEEN AND EXAMINED PATIENT WITH NEW ORDERS AND NOTED.
[2019-10-29 13:19] LABS: BILIRUBIN,TOTAL 0.9 mg/dL (0.1-1.0); POTASSIUM 4.1 mmol/L (3.5-5.1)
[2019-10-29 13:20] LABS: TOTAL PROTEIN, SERUM 6.8 g/dL (6.4-8.2)
[2019-10-29] MEDS ORDERED: LOSARTAN POTASSIUM 50 MG TABLET PO ONE (13:30)
[2019-10-29 13:43] VITALS: BP 168/125
[2019-10-29 16:04] VITALS: BP 160/117
--- NOTE | 2019-10-29 16:59 | NUR ---
DR SANFORD HERE SEEN PATIENT AND STATED THAT PATIENT IS EAGER TO LEAVE AND WANTED HIS BLOOD PRESSURE CHECKED BEFORE HE CAN DECIDE IF PATIENT CAN BE DISCHARGED OR NOT SO BLOOD PRESSURE RECHECKED AND ITS 176/128 HEART RATE IS [address] VIGIL AWAITING FOR HIS FINAL DECISION.
--- NOTE | 2019-10-29 17:01 | NUR ---
CALL RECEIVED FROM DR VIGIL AT THIS TIME STATED THAT PATIENT CANNOT BE DISCHARGED BASED ON HIS HIGH BLOOD PRESSURE.PATIENT NOTIFIED.
[2019-10-29] MEDS: hydrALAZINE HCL 25 MG TABLET PO PRN (17:09)
--- NOTE | 2019-10-29 18:00 | NUR ---
NO C/O AT THIS TIME NO SOB NOT IN DISTRESS REMAIN ON DROPLET ISOLATION AND PRECAUTION ORDERED.
--- NOTE | 2019-10-29 19:50 | NUR ---
PATIENT ALERT ORIENTED, NO SOB NO CHEST PAIN, NO COUGHING NOTED, TELE MONITOR SINUS TACHY 103, BP STABLE, AFEBRILE. PATIENT IN DROPLET PRECAUTION, CONT TO MONITOR.
[2019-10-29 20:00] VITALS: BP 137/93
[2019-10-30 00:21] VITALS: BP 169/121
[2019-10-30] MEDS: hydrALAZINE HCL 25 MG TABLET PO PRN (00:25)
--- NOTE | 2019-10-30 04:28 | NUR ---
PATIENT ALERT ORIENTED, NO SOB NO CHEST PAIN. PATIENT TELE MONITOR SINUS TACHY. PATIENT HAS NO COMPLAIN OF PAIN, AFEBRILE REMAINS IN DROPLET PRECAUTION FOR INFLUENZA A VIRUS, ISOLATION PRECAUTION OBSERVED. CONT TO MONITOR.
[2019-10-30 05:04] VITALS: BP 147/105
[2019-10-30] MEDS: IBUPROFEN 400 MG TABLET PO SCH (06:11)
[2019-10-30] MEDS: PANTOPRAZOLE SODIUM 40 MG TABLET.DR PO SCH (06:11)
[2019-10-30] MEDS: BLOOD SUGAR DIAGNOSTIC 1 EACH STRIP VI SCH ×2 (06:11→12:08)
[2019-10-30 06:26] LABS: BASOPHILS % (AUTO) 0.6 % (0.0-2.0); EOSINOPHILS # (AUTO) 0.3 K/uL (0.0-0.7); HEMATOCRIT 37.2 % (36.7-47.1); HEMOGLOBIN 12.4 g/dL (12.5-16.3); LYMPHOCYTES # (AUTO) 3.5 K/uL (20.0-40.0); MEAN CORPUSCULAR HEMOGLOBIN 26.6 uug (23.8-33.4); MEAN CORPUSCULAR HGB CONC 33 g/dL (32.5-36.3); MONOCYTES # (AUTO) 0.6 K/uL (2.0-10.0); NEUTROPHILS # (AUTO) 2.2 K/uL (1.8-8.9); NEUTROPHILS % (AUTO) 33.4 % (38.5-71.5); PLATELET COUNT (AUTO) 254 K/uL (152-348); RED BLOOD CELL COUNT(AUTO) 4.65 MIL/uL (4.06-5.63); WHITE BLOOD COUNT (AUTO) 6.5 K/uL (3.6-10.2)
[2019-10-30 06:37] LABS: CREATININE 0.9 mg/dL (0.6-1.3); MAGNESIUM 1.7 mg/dL (1.8-2.4)
[2019-10-30 07:38] LABS: POTASSIUM 3.4 mmol/L (3.5-5.1)
--- NOTE | 2019-10-30 08:01 | NUR ---
RECEIVED PATIENT IN BED, AWAKE, AOX4. DENIES SOB OR PAIN AT THIS TIME. ON DROPLET ISOLATION. KEI TACH ON TELEMETRY WITH HR 107. RIGHT AC IV INTACT AND FLUSHED. ALL NEEDS MET AT THIS TIME. SAFETY AND FALL PREVENTION IN PLACE. CALL LIGHT IN REACH. BED LOW AND LOCKED. WILL CONTINUE TO MONITOR.
[2019-10-30] MEDS: INSULIN REGULAR, HUMAN 300 UNIT/3 ML VIAL SQ PRN ×2 (08:11→12:11)
[2019-10-30] MEDS: ENOXAPARIN SODIUM 40 MG/0.4 ML DISP.SYRIN SQ SCH (08:13)
[2019-10-30] MEDS: METOPROLOL SUCCINATE XL 50 MG TAB.SR.24H PO SCH (08:18)
[2019-10-30] MEDS: COLCHICINE 0.6 MG TABLET PO SCH (08:19)
[2019-10-30] MEDS ORDERED: LOSARTAN POTASSIUM 50 MG TABLET PO SCH ×2 (09:00)
[2019-10-30] MEDS ORDERED: LOSARTAN POTASSIUM 25 MG TABLET PO SCH (09:00)
[2019-10-30] MEDS ORDERED: CLONIDINE HCL 0.1 MG TABLET PO SCH (09:15)
[2019-10-30] MEDS ORDERED: MAGNESIUM OXIDE 400 MG TABLET PO ONE (09:15)
[2019-10-30] MEDS ORDERED: AMLODIPINE 10 MG TABLET PO SCH (09:15)
[2019-10-30] MEDS ORDERED: POTASSIUM CHLORIDE 20 MEQ TAB.PRT.SR PO ONE (09:15)
[2019-10-30] MEDS ORDERED: INFLUENZA VACCINE 2019-2020 0.5 ML DISP.SYRIN IM ONE (10:45)
[2019-10-30 11:24] VITALS: BP 140/94
--- NOTE | 2019-10-30 13:25 | NUR ---
PATIENT DISCHARGED TO HOME-SELF CARE. PICKED UP THE PATIENT IN [employer] CAR. DISCHARGE INSTRUCTIONS WENT OVER WITH PATIENT AND PATIENT SHOWS GOOD UNDERSTANDING OF CARE. RX GIVEN TO PATIENT. BELONGINGS LIST WENT OVER WITH PATIENT AND SENT HOME WITH PATIENT. PATIENT IV TAKEN OUT AND ARM BAND TAKEN OFF. PATIENT LEFT IN STABLE CONDITION.
[2019-10-30 13:51] LABS: PHOSPHOROUS 3.9 mg/dL (2.5-4.9)
== END 2019-10-30 12:25 | disposition home or self-care (01) | DRG 871 ==
LOC: ER 22:28 → TELE3 10-28 03:39 → EDBD 10-28 03:39 → MEDSURG3 10-30 11:02
PROVIDERS: ADMIT Nurse Practitioner Acute Care; ATTEND Student in an Organized Health Care Education/Training Program
DX: A41.89 Other specified sepsis (principal); J11.00 Influenza due to unidentified influenza virus with unspecified type of pneumonia; J96.01 Acute respiratory failure with hypoxia; J18.8 Other pneumonia, unspecified organism; I50.23 Acute on chronic systolic (congestive) heart failure; I47.1 Supraventricular tachycardia; E44.1 Mild protein-calorie malnutrition; I42.9 Cardiomyopathy, unspecified; Z68.41 Body mass index [BMI] 40.0-44.9, adult; I30.1 Infective pericarditis; B37.49 Other urogenital candidiasis; R65.20 Severe sepsis without septic shock; E11.65 Type 2 diabetes mellitus with hyperglycemia; Z91.19 Patient's noncompliance with other medical treatment and regimen; E66.01 Morbid (severe) obesity due to excess calories; E78.5 Hyperlipidemia, unspecified; I11.0 Hypertensive heart disease with heart failure; E87.6 Hypokalemia; Z87.891 Personal history of nicotine dependence; Z79.84 Long term (current) use of oral hypoglycemic drugs; R74.0 Nonspecific elevation of levels of transaminase and lactic acid dehydrogenase [LDH]; Z79.899 Other long term (current) drug therapy
CPT/HCPCS: 36415; 71045; 83735; 84100; 85025; 90686; 93005; A4663; G0378; J0360; J1200; J1650; J1815; J2765; J3475; J7030